=== PATIENT | female | born 1965 | race African-American/Black ===

== ENCOUNTER 2017-03-05 15:22 | Emergency (ER) | payer OTHER ==
[2017-03-05 15:32] VITALS: BP 159/79; PULSE 68; TEMP 98; BMI 42.5
--- NOTE | 2017-03-05 16:49 | PDOC ---
History of Present Illness - General Chief Complaint: Bite Stated Complaint: SPIDER BITE Time Seen by Provider: 03/05/17 16:36 History Source: Patient Exam Limitations: Language Barrier - History of Present Illness Initial Comments: 03/05/17 16:44 redness to area of spider bite of 2-3 days ago Timing/Duration: reports: getting worse Severity: Yes: moderate Location: reports: extremities (right fore arm) Respiratory Risk Factors: reports: insect bite Past History - Past Medical History Allergies/Adverse Reactions: Allergies Allergy/AdvReac Type Severity Reaction Status Date / Time acetaminophen [From Tylenol] Allergy Verified 03/05/17 15:29 Home Medications: Ambulatory Orders Losartan Potassium 50 mg PO DAILY 03/05/17 HTN: Yes - Surgical History Abdominal Surgery: Yes (myeomectomy) - Suicide/Smoking/Psychosocial Hx Smoking History: Never smoked Information on smoking cessation initiated: No Hx Alcohol Use: No Drug/Substance Use Hx: No Substance Use Type: None Review of Systems - Review of Systems Constitutional: No: Chills, Fever, Malaise HEENTM: No: Symptoms Reported Respiratory: No: Symptoms reported Integumentary: Yes: Erythema (cellulitis right fore arm) *Physical Exam - Vital Signs Last Vital Signs Temp Pulse Resp BP Pulse Ox 98.0 F 68 18 159/79 100 03/05/17 15:30 03/05/17 15:30 03/05/17 15:30 03/05/17 15:30 03/05/17 15:30 - Physical Exam General Appearance: Yes: Appropriately Dressed, Apparent Distress Respiratory/Chest: positive: Lungs Clear Integumentary: positive: Erythema (red, indurated area, right upper fore arm; elbow joint not involved; ~ 20cm x 10cm redness; not fluct.) Medical Decision Making - Medical Decision Making 03/05/17 16:47 will start on bactrim with close follow up, 2 days; cellulitis demarcated *DC/Admit/Observation/Transfer Diagnosis at time of Disposition: Cellulitis of right forearm - Discharge Dispostion Disposition: HOME Condition at time of disposition: Stable Admit: No - Patient Instructions Additional Instructions: please return immediately for fever, increased redness; wound check in ED in 2 days; warm soaks
== END 2017-03-05 16:54 | disposition home or self-care (01) ==
LOC: JERFT 15:22
DX: L03.113 Cellulitis of right upper limb (principal); T63.301A Toxic effect of unspecified spider venom, accidental (unintentional), initial encounter; I10 Essential (primary) hypertension
CPT/HCPCS: 99281-25

== ENCOUNTER 2017-04-23 20:27 | Emergency (ER) | payer OTHER ==
--- NOTE | 2017-04-23 20:40 | PDOC ---
Rapid Medical Evaluation Time Seen by Provider: 04/23/17 20:36 Medical Evaluation: Allergies Allergy/AdvReac Type Severity Reaction Status Date / Time acetaminophen [From Tylenol] Allergy Verified 03/05/17 15:29 04/23/17 20:37 I performed a brief in-person evaluation of this patient. The patient presents with a chief complaint of: pain in left wrist after tripped and fall Wednesday. Denies head injury, or loss of consciousness States broke fall with left hand Pertinent physical exam findings: NAD unlabored breathing left wrist with bruising on radial side, +ttp of left wrist, + pain with pronation and supination of left forearm I have ordered the following: xray The patient will proceed to the Ed for further evaluation
[2017-04-23 20:41] VITALS: BP 152/68; PULSE 70; TEMP 98.5; BMI 42.5
--- NOTE | 2017-04-23 21:10 | PDOC ---
History of Present Illness - General Chief Complaint: Injury Stated Complaint: INJURY Time Seen by Provider: 04/23/17 20:36 History Source: Patient Exam Limitations: No Limitations - History of Present Illness Initial Comments: 04/23/17 21:05 52-year-old female with history of hypertension and prediabetes presents to the emergency department complaining of pain to the left distal wrist. Patient states she tripped on her shopping cart yesterday and fell onto her outstretched left hand. Pain to the wrist is described as 6/10 dull nonradiating intermittent discomfort which is exacerbated on movement and alleviated at rest. Patient denies any extremity numbness or tingling sensation. Patient denies any head injuries, neck/active injuries/pain, chest pain or shortness of breath. Patient denies extremity numbness or tingling sensation. Patient denies any other complaints. Timing/Duration: 24 hours Past History - Past Medical History Allergies/Adverse Reactions: Allergies Allergy/AdvReac Type Severity Reaction Status Date / Time acetaminophen [From Tylenol] Allergy Verified 04/23/17 20:41 Home Medications: Ambulatory Orders Losartan Potassium 50 mg PO DAILY 03/05/17 Sulfamethoxazole/Trimethoprim [Bactrim Ds -] 1 tab PO BID #20 tablet 03/05/17 COPD: No HTN: Yes - Surgical History Abdominal Surgery: Yes (myeomectomy) - Suicide/Smoking/Psychosocial Hx Smoking History: Never smoked Hx Alcohol Use: No Drug/Substance Use Hx: No Substance Use Type: None Review of Systems - Review of Systems Able to Perform ROS?: Yes Comments:: 04/23/17 21:06 CONSTITUTIONAL: Absent: fever, chills, diaphoresis, generalized weakness, malaise, loss of appetite HEENT: Absent: rhinorrhea, nasal congestion, throat pain, throat swelling, difficulty swallowing, mouth swelling, ear pain, eye pain, visual Changes CARDIOVASCULAR: Absent: chest pain, loss of consciousness, palpitations, irregular heart rate, peripheral edema RESPIRATORY: Absent: cough, shortness of breath, dyspnea with exertion, orthopnea, wheezing, stridor, hemoptysis GASTROINTESTINAL: Absent: abdominal pain, abdominal distension, nausea, vomiting, diarrhea, constipation, melena, hematochezia MUSCULOSKELETAL: Excluding left wrist Absent: myalgia, arthralgia, joint swelling SKIN: Absent: rash, itching, pallor HEMATOLOGIC/IMMUNOLOGIC: Absent: easy bleeding, easy bruising, lymphadenopathy, frequent infections Left wrist: +pain +swelling Left hand No pain Nio swelling No numbness/tingling sensation Left elbow: Neg pain Neg swelling Neg numbness/tingling sensation Is the patient limited Japanese proficient: No *Physical Exam - Vital Signs Last Vital Signs Temp Pulse Resp BP Pulse Ox 98.5 F 70 18 152/68 99 04/23/17 20:38 04/23/17 20:38 04/23/17 20:38 04/23/17 20:38 04/23/17 20:38 - Physical Exam Comments: 04/23/17 21:06 GENERAL: Well developed, well nourished. Awake and alert. No acute distress. HEENT: Normocephalic, atraumatic. PERRLA, EOMI. No conjunctival pallor. Sclera are non- icteric. Moist mucous membranes. Oropharynx is clear. NECK: Supple. Full ROM. No JVD. Carotid pulses 2+ and symmetric, without bruits. No thyromegaly. No lymphadenopathy. MUSCULOSKELETAL Exluding Left wrist Normal range of motion at all joints. No bony deformities or tenderness. No CVA tenderness. EXTREMITIES: No cyanosis. No clubbing. No edema. No calf tenderness. SKIN: Warm and dry. Normal capillary refill. No rashes. No jaundice. Left wrist: +swelling +pain Decreased R.O.M./pain Left hand F.R.O.M> cap refill <2sec Neg swelling LEft elbow F.R>O.M> neg pain on deep palp Neg swelling Neg obv deformities ED Treatment Course - RADIOLOGY Radiograph Interpretation: 04/23/17 21:08 Left wrist: non displaced transverse distal radius fx Left forearm: ?osteophyte to prox ulnar. *DC/Admit/Observation/Transfer Diagnosis at time of Disposition: Wrist fracture, left Qualifiers: Encounter type: initial encounter Fracture type: closed Qualified Code(s): S62.102A - Fracture of unspecified carpal bone, left wrist, initial encounter for closed fracture - Discharge Dispostion Disposition: HOME Condition at time of disposition: Stable Admit: No - Referrals Referrals: Eduar Campbell MD [Staff Physician] - - Patient Instructions Printed Discharge Instructions: DI for Wrist Fracture Additional Instructions: Ice; 20 mins on alternating with 20 mins off for 48 hours while awake. Rest Elevate Follow up with your orthopedic surgeon or the one listed on the discharge form. Return to the ER for severe/persistent/worsening symptoms, extremity numbness/ tingling sensation. - Post Discharge Activity Progress Note - Progress Note Progress Note: Procedure: sugar tong splint
== END 2017-04-23 21:30 | disposition home or self-care (01) ==
LOC: JERFT 20:27
DX: S52.592A Other fractures of lower end of left radius, initial encounter for closed fracture (principal); W18.09XA Striking against other object with subsequent fall, initial encounter; Y93.89 Activity, other specified; Y92.89 Other specified places as the place of occurrence of the external cause; Y99.8 Other external cause status
CPT/HCPCS: 73090-TC-LT; 73110-TC-LT; 99282-25

== ENCOUNTER 2017-12-30 11:10 | Day surgery (SDC) | payer OTHER ==
[2017-12-30 11:39] VITALS: BMI 42.5
[2017-12-30 12:12] VITALS: TEMP 98.2
[2017-12-30 13:06] VITALS: BP 125/76; PULSE 60
== END 2017-12-30 13:10 | disposition home or self-care (01) ==
LOC: JASU-ENDO 11:10
PROVIDERS: ATTEND Internal Medicine Gastroenterology
PROC: 0DJD8ZZ Inspection of Lower Intestinal Tract, Via Natural or Artificial Opening Endoscopic (ICD-10-PCS; principal; 2017-12-30 11:45)
DX: Z12.11 Encounter for screening for malignant neoplasm of colon (principal); K64.8 Other hemorrhoids; I10 Essential (primary) hypertension; R73.03 Prediabetes; J45.998 Other asthma; E66.9 Obesity, unspecified; Z68.41 Body mass index [BMI] 40.0-44.9, adult